=== PATIENT | male | born 1965 | race Hispanic/Latino ===

== ENCOUNTER 2017-08-01 01:32 | Emergency (ER) | payer SELFPAY ==
[2017-08-01 02:38] VITALS: PULSE 72; RESP 18; TEMP 98.3
[2017-08-01 02:39] VITALS: BMI 41.1
[2017-08-01] MEDS ORDERED: Oxycodone/Acetaminophen 5/325 mg Tab PO STA (03:22)
--- NOTE | 2017-08-01 03:29 | ED PDOC ---
Arrival/HPI - General Chief Complaint: Abnormal Skin Integrity Time Seen by Provider: 08/01/17 03:00 Historian: Patient - History of Present Illness Narrative History of Present Illness (Text): you were treated in the ED today for hx of shingles in the past and now having right upper abdomen/right lower chest with recurrent shingles/type uncomfortable rash and otherwise without any new foods/travel/sick contacts/new detergents/nausea/vomiting/headache/dizziness/difficulty breathing/chest pain/ abdomen pain/numbness/tingling/loss of limb function/pain with urination. You were otherwise breathing easily, pink moist lips, talking easily, good strength/ sensation, alert/oriented, walking easily, clear lungs, no abdomen tenderness, no oral lesions/swelling/change in voice/back of throat redness/white spots, noted positive right lower chest wall/upper abdomen area of shingles type rash without sign of bacterial infection at this time, no fever temp 98.3, stable heart rate 72, stable breathing rate 18, excellent oxygen level 96% room air, elevated blood pressure 168/99 which we recommend repeat in 2-3 days primary care office to determine further treatment, you stated you have taken motrin without improvement and asked for percocet for relief, acyclovir, prednisone, observation done in the ED with improvement, counselled to monitor symptoms and thus discharged home with family safe ride. 1. Recommend acyclovir, prednisone as directed for shingles control. 2. Recommend tylenol as directed for mild pain , motrin as directed for moderate pain and percocet as directed for breakthrough pain and don't work/drive/drink alcohol when using. 3. Recommend follow-up primary care 2-3 days to review symptoms. 4. If any worsening pain, fever, chills, nausea, vomiting, difficulty breathing, numbness, loss of limb function, pain with urination or any medical condition then return to the ED. 08/01/17 03:23 08/01/17 03:24 Time/Duration: Other (2 days) Symptom Onset: Gradual Symptom Course: Unchanged Quality: Aching Severity Level: 5 Activities at Onset: Rest Context: Sitting Past Medical History - Provider Review Nursing Documentation Reviewed: Yes - Travel History Have you recently traveled outside [place] w/in the past 3 mons?: No - Infectious Disease Hx of Infectious Diseases: None - Cardiac Hx Hypertension: Yes - Integumentary Other/Comment: [place] - Psychiatric Hx Substance Use: No - Surgical History Hx Orthopedic Surgery: Yes - Anesthesia Hx Anesthesia: Yes Hx Anesthesia Reactions: No Hx Malignant Hyperthermia: No Family/Social History - Physician Review Nursing Documentation Reviewed: Yes Family/Social History: No Known Family HX Smoking Status: Never Smoked Hx Alcohol Use: No Hx Substance Use: No Allergies/Home Meds Allergies/Adverse Reactions: Allergies No Known Allergies Allergy (Verified 08/01/17 02:38) Review of Systems - Review of Systems Constitutional: Normal Eyes: Normal ENT: Normal Respiratory: Normal Cardiovascular: Normal Gastrointestinal: Normal Genitourinary Male: Normal Musculoskeletal: Normal Skin: Rash Neurological: Normal Endocrine: Normal Hemo/Lymphatic: Normal Psychiatric: Normal Physical Exam Vital Signs Reviewed: Yes Vital Signs Temp Pulse Resp BP Pulse Ox 08/01/17 02:38 98.3 F 72 18 168/99 H 96 Temperature: Afebrile Blood Pressure: Hypertensive Pulse: Regular Respiratory Rate: Normal Appearance: Positive for: Well-Appearing, Non-Toxic, Comfortable Pain Distress: None Mental Status: Positive for: Alert and Oriented X 3 - Systems Exam Head: Present: Atraumatic, Normocephalic Pupils: Present: PERRL Extroacular Muscles: Present: EOMI Conjunctiva: Present: Normal Ears: Present: Normal Mouth: Present: Moist Mucous Membranes, Normal Tounge Pharnyx: Present: Normal Nose (External): Present: Atraumatic Nose (Internal): Present: Normal Inspection Neck: Present: Normal Range of Motion Respiratory/Chest: Present: Clear to Auscultation, Good Air Exchange Cardiovascular: No: Regular Rate and Rhythm, Murmurs, Normal S1, S2, Irregular Rhythm, Peripheal Pulses Present, Tachycardic, Bradycardic, Rub, Gallop, Muffled , Other Abdomen: No: Tenderness, Distention, Normal Bowel Sounds, Peritoneal Signs, Rebound, Guarding, McBurney's Point Tender, Rovsing's Sign Present, Hernias, Feeding Tubes, Ostomy Tubes, Mass/Organomegaly, Scars, Other Back: Present: Other (noted positive right lower chest wall/upper abdomen area which goes to the right upper back in a dermatome/nerve fashion of shingles type rash without sign of bacterial infection at this time) Upper Extremity: Present: Normal Inspection Lower Extremity: Present: Normal Inspection Neurological: Present: GCS=15, CN II-XII Intact, Speech Normal, Motor Func Grossly Intact Skin: Present: Warm, Rashes, Other (noted positive right lower chest wall/upper abdomen area which goes to the right upper back in a dermatome/nerve fashion of shingles type rash without sign of bacterial infection at this time) Psychiatric: Present: Alert, Oriented x 3, Normal Insight, Normal Concentration Medical Decision Making ED Course and Treatment: you were treated in the ED today for hx of shingles in the past and now having right upper abdomen/right lower chest with recurrent shingles/type uncomfortable rash and otherwise without any new foods/travel/sick contacts/new detergents/nausea/vomiting/headache/dizziness/difficulty breathing/chest pain/ abdomen pain/numbness/tingling/loss of limb function/pain with urination. You were otherwise breathing easily, pink moist lips, talking easily, good strength/ sensation, alert/oriented, walking easily, clear lungs, no abdomen tenderness, no oral lesions/swelling/change in voice/back of throat redness/white spots, noted positive right lower chest wall/upper abdomen area which goes to the right upper back in a dermatome/nerve fashion of shingles type rash without sign of bacterial infection at this time, no spinal tenderness, no fever temp 98.3, stable heart rate 72, stable breathing rate 18, excellent oxygen level 96% room air, elevated blood pressure 168/99 which we recommend repeat in 2-3 days primary care office to determine further treatment, you stated you have taken motrin without improvement and asked for percocet for relief, acyclovir, prednisone, observation done in the ED with improvement, counselled to monitor symptoms and thus discharged home with family safe ride. 1. Recommend acyclovir , prednisone as directed for shingles control. 2. Recommend tylenol as directed for mild pain, motrin as directed for moderate pain and percocet as directed for breakthrough pain and don't work/drive/drink alcohol when using. 3. Recommend follow-up primary care 2-3 days to review symptoms. 4. If any worsening pain, fever, chills, nausea, vomiting, difficulty breathing, numbness , loss of limb function, pain with urination or any medical condition then return to the ED. 08/01/17 03:30 08/01/17 03:31 Reassessment Condition: Re-examined, Improved - Medication Orders Current Medication Orders: Discontinued Medications Acyclovir (Zovirax) 800 mg PO STAT STA PRN Reason: Protocol Stop: 08/01/17 03:20 Oxycodone/Acetaminophen (Percocet 5/325 Mg Tab) 1 tab PO STAT STA Stop: 08/01/17 03:23 Prednisone (Prednisone Tab) 60 mg PO STAT ONE Stop: 08/01/17 03:23 Disposition/Present on Arrival - Present on Arrival Any Indicators Present on Arrival: No History of DVT/PE: No History of Uncontrolled Diabetes: No Urinary Catheter: No History of Decub. Ulcer: No History Surgical Site Infection Following: None - Disposition Have Diagnosis and Disposition been Completed?: Yes Diagnosis: Shingles Disposition: HOME/ ROUTINE Disposition Time: 03:31 Patient Plan: Discharge Patient Problems: Current Active Problems Problem Status Onset Shingles Acute Condition: IMPROVED Discharge Instructions (ExitCare): Shingles (DC), Shingles (ED) Additional Instructions: you were treated in the ED today for hx of shingles in the past and now having right upper abdomen/right lower chest with recurrent shingles/type uncomfortable rash and otherwise without any new foods/travel/sick contacts/new detergents/nausea/vomiting/headache/dizziness/difficulty breathing/chest pain/ abdomen pain/numbness/tingling/loss of limb function/pain with urination. You were otherwise breathing easily, pink moist lips, talking easily, good strength/ sensation, alert/oriented, walking easily, clear lungs, no abdomen tenderness, no oral lesions/swelling/change in voice/back of throat redness/white spots, noted positive right lower chest wall/upper abdomen area which goes to the right upper back in a dermatome/nerve fashion of shingles type rash without sign of bacterial infection at this time, no spinal tenderness, no fever temp 98.3, stable heart rate 72, stable breathing rate 18, excellent oxygen level 96% room air, elevated blood pressure 168/99 which we recommend repeat in 2-3 days primary care office to determine further treatment, you stated you have taken motrin without improvement and asked for percocet for relief, acyclovir, prednisone, observation done in the ED with improvement, counselled to monitor symptoms and thus discharged home with family safe ride. 1. Recommend acyclovir , prednisone as directed for shingles control. 2. Recommend tylenol as directed for mild pain, motrin as directed for moderate pain and percocet as directed for breakthrough pain and don't work/drive/drink alcohol when using. 3. Recommend follow-up primary care 2-3 days to review symptoms. 4. If any worsening pain, fever, chills, nausea, vomiting, difficulty breathing, numbness , loss of limb function, pain with urination or any medical condition then return to the ED. Prescriptions: Acyclovir [Zovirax] 800 mg PO 5XD 7 Days #35 tablet oxyCODONE/Acetaminophen [Percocet 5/325 mg Tab] 1 ea PO Q8 PRN 1 Days #6 tab PRN Reason: breakthrough pain predniSONE [Prednisone] 20 mg PO DAILY 5 Days #5 tab Forms: [employer] (Estonian)
[2017-08-01 04:53] VITALS: BP 156/88; O2SAT 100
== END 2017-08-01 03:35 | disposition home or self-care (01) ==
LOC: ED 01:32
DX: B02.9 Zoster without complications (principal)

== ENCOUNTER 2017-09-07 20:11 | Emergency (ER) | payer SELFPAY ==
[2017-09-07 20:12] VITALS: BMI 41.1
[2017-09-07 22:38] VITALS: BP 157/88; PULSE 80; RESP 16; TEMP 97.5; O2SAT 97
--- NOTE | 2017-09-08 02:50 | ED PDOC ---
Arrival/HPI - General Chief Complaint: Abnormal Skin Integrity Time Seen by Provider: 09/07/17 21:15 - History of Present Illness Narrative History of Present Illness (Text): 09/08/17 21:20 A 51 year old male, whose past medical history includes hypertension and Reynaud 's disease, presents to the emergency department complaining of painful chest rash. Patient reports rash began yesterday and it is painful to touch. He mentions having a history of shingles in the past. Patient denies any fever, or any other complaints at this time. No PMD Time/Duration: 24 hours Past Medical History - Provider Review Nursing Documentation Reviewed: Yes - Infectious Disease Hx of Infectious Diseases: None - Cardiac Hx Hypertension: Yes - Integumentary Other/Comment: Reynaud's - Psychiatric Hx Substance Use: No - Surgical History Hx Orthopedic Surgery: Yes - Anesthesia Hx Anesthesia: Yes Hx Anesthesia Reactions: No Hx Malignant Hyperthermia: No Family/Social History - Physician Review Nursing Documentation Reviewed: Yes Family/Social History: No Known Family HX Smoking Status: Never Smoked Hx Alcohol Use: No Hx Substance Use: No Allergies/Home Meds Allergies/Adverse Reactions: Allergies No Known Allergies Allergy (Verified 09/07/17 20:40) Review of Systems - Physician Review All systems were reviewed & negative as marked: Yes - Review of Systems Constitutional: absent: Fevers Respiratory: absent: SOB, Cough Cardiovascular: absent: Chest Pain Gastrointestinal: absent: Abdominal Pain, Diarrhea, Nausea, Vomiting Genitourinary Male: absent: Urinary Output Changes Musculoskeletal: absent: Back Pain, Neck Pain Skin: Rash (painful rash located on chest, painful to touch.) Neurological: absent: Headache, Dizziness Physical Exam Vital Signs Reviewed: Yes Vital Signs Temp Pulse Resp BP Pulse Ox 09/07/17 22:15 97.5 F L 80 16 157/88 H 97 09/07/17 22:09 97.8 F 73 17 151/95 H 100 09/07/17 20:50 97.5 F L 80 18 157/88 H 97 Temperature: Afebrile Blood Pressure: Hypertensive Pulse: Regular Respiratory Rate: Normal Appearance: Positive for: Well-Appearing, Non-Toxic, Comfortable Pain Distress: None Mental Status: Positive for: Alert and Oriented X 3 - Systems Exam Head: Present: Atraumatic, Normocephalic Mouth: Present: Moist Mucous Membranes Neck: Present: Normal Range of Motion Respiratory/Chest: Present: Clear to Auscultation, Good Air Exchange. No: Respiratory Distress, Accessory Muscle Use Cardiovascular: Present: Regular Rate and Rhythm, Normal S1, S2. No: Murmurs Abdomen: No: Tenderness, Distention, Peritoneal Signs Back: Present: Normal Inspection Upper Extremity: Present: Normal Inspection. No: Cyanosis, Edema Lower Extremity: Present: Normal Inspection. No: Edema Neurological: Present: GCS=15, CN II-XII Intact, Speech Normal Skin: Present: Rashes (dermatomal rash located on chest along anterior TA distribution, tender to touch.) Psychiatric: Present: Alert, Oriented x 3, Normal Insight, Normal Concentration Medical Decision Making ED Course and Treatment: 09/07/17 21:24 Impression: 51 year old male with painful rash to chest. Plan: -- Zovirax -- preniSONE Tab -- Reassess and disposition Progress Notes: - Medication Orders Current Medication Orders: Discontinued Medications Acyclovir (Zovirax) 800 mg PO STAT STA PRN Reason: Protocol Stop: 09/07/17 21:25 Last Admin: 09/07/17 22:05 Dose: 800 mg Prednisone (Prednisone Tab) 60 mg PO STAT ONE Stop: 09/07/17 21:16 Last Admin: 09/07/17 22:05 Dose: 60 mg - Scribe Statement The provider has reviewed the documentation as recorded by the Anamaria Patrick Provider Scribe Attestation: All medical record entries made by the Scribe were at my direction and personally dictated by me. I have reviewed the chart and agree that the record accurately reflects my personal performance of the history, physical exam, medical decision making, and the department course for this patient. I have also personally directed, reviewed, and agree with the discharge instructions and disposition. Disposition/Present on Arrival - Present on Arrival Any Indicators Present on Arrival: No History of DVT/PE: No History of Uncontrolled Diabetes: No Urinary Catheter: No History of Decub. Ulcer: No History Surgical Site Infection Following: None - Disposition Have Diagnosis and Disposition been Completed?: Yes Diagnosis: Shingles Disposition: HOME/ ROUTINE Disposition Time: 20:50 Condition: GOOD Discharge Instructions (ExitCare): Shingles (ED) Additional Instructions: DECLAN SIMONS, thank you for letting us take care of you today. Your provider was Francisco Perez DO and you were treated for CHEST RASH. The emergency medical care you received today was directed at your acute symptoms. If you were prescribed any medication, please fill it and take as directed. It may take several days for your symptoms to resolve. Return to the Emergency Department if your symptoms worsen, do not improve, or if you have any other problems. Please contact your doctor or call one of the physicians/clinics you have been referred to that are listed on the Patient Visit Information form that is included in your discharge packet. Bring any paperwork you were given at discharge with you along with any medications you are taking to your follow up visit. Our treatment cannot replace ongoing medical care by a primary care provider outside of the emergency department. Thank you for allowing the [facility] team to be part of your care today. Follow up with your primary care doctor in 2-3 days for re-evaluation and further management. Prescriptions: Acyclovir [Zovirax] 800 mg PO 5XD 7 Days tab oxyCODONE [oxyCODONE Immediate Release Tab] 5 mg PO Q6 PRN #15 tab PRN Reason: Pain, Severe (8-10) predniSONE [Prednisone] 40 mg PO DAILY #10 tab Referrals: [facility] Maddy Remadeline, [Family Provider] - Follow up with primary Forms: [employer] (Divehi)
== END 2017-09-07 22:20 | disposition home or self-care (01) ==
LOC: ED 20:11
DX: B02.9 Zoster without complications (principal); I10 Essential (primary) hypertension

== ENCOUNTER 2017-10-29 04:03 | Emergency (ER) | payer SELFPAY ==
[2017-10-29 04:03] VITALS: BMI 41.1
[2017-10-29 04:16] VITALS: BP 156/100; PULSE 88; RESP 18; TEMP 98.4
--- NOTE | 2017-10-29 04:35 | ED PDOC ---
Arrival/HPI - General Historian: Patient - History of Present Illness Time/Duration: < week Symptom Onset: Gradual Symptom Course: Worsening Quality: Stabbing, Burning Severity Level: Moderate - General Chief Complaint: Abnormal Skin Integrity Time Seen by Provider: 10/29/17 04:18 - History of Present Illness Narrative History of Present Illness (Text): 10/29/17 04:31 51 year old male, past medical history of hypertension, Raynaud's, and shingles , presents to the emergency department with new onset dermatomal rash on right side of chest. Patient states he felt stabbing pain with tingling over the right chest below the breast 3 days ago. The following day he noticed the rash develop with subsequent vesicles and discharge. He states the pain is unbearable. He has a history of shingles treated in the past. Patient used lidoderm, aveeno bath, motrin, and a percocet (given to him by his mother) for pain relief. He is unable to sit because that aggravates his symptoms. Denies fever, chills, nausea, vomiting, headache, dizziness, palpitations, shortness of breath, cough, abdominal pain, or urinary symptoms. No PMD (Yehya,Mayito) Past Medical History - Provider Review Nursing Documentation Reviewed: Yes - Infectious Disease Hx of Infectious Diseases: None - Cardiac Hx Cardiac Disorders: Yes Hx Hypertension: Yes - Integumentary Other/Comment: [place] - Psychiatric Hx Substance Use: No - Surgical History Hx Orthopedic Surgery: Yes - Anesthesia Hx Anesthesia: Yes Hx Anesthesia Reactions: No Hx Malignant Hyperthermia: No Family/Social History - Physician Review Nursing Documentation Reviewed: Yes Family/Social History: Neoplasm/Cancer Smoking Status: Never Smoked Hx Alcohol Use: No Hx Substance Use: No Allergies/Home Meds Allergies/Adverse Reactions: Allergies No Known Allergies Allergy (Verified 09/07/17 20:40) Home Medications: Home Meds Medication Instructions Recorded Confirmed Allopurinol [Zyloprim] 100 mg PO BID 10/29/17 10/29/17 Ibuprofen [Motrin Tab] 800 mg PO TID PRN 10/29/17 10/29/17 Lisinopril [Zestril] 40 mg PO DAILY 10/29/17 10/29/17 Review of Systems - Physician Review All systems were reviewed & negative as marked: Yes - Review of Systems Constitutional: absent: Fevers Eyes: absent: Vision Changes ENT: absent: Hearing Changes Respiratory: absent: SOB, Cough Cardiovascular: absent: Chest Pain, Palpitations Gastrointestinal: absent: Abdominal Pain, Nausea, Vomiting Genitourinary Male: absent: Dysuria, Hematuria Skin: Rash, Skin Lesions Neurological: absent: Headache, Dizziness Physical Exam Vital Signs Reviewed: Yes Temperature: Afebrile Blood Pressure: Hypertensive Pulse: Regular Respiratory Rate: Normal Appearance: Positive for: Well-Appearing, Non-Toxic, Uncomfortable Pain Distress: Moderate Mental Status: Positive for: Alert and Oriented X 3 - Systems Exam Head: Present: Atraumatic, Normocephalic Pupils: Present: PERRL Extroacular Muscles: Present: EOMI Mouth: Present: Moist Mucous Membranes Respiratory/Chest: Present: Clear to Auscultation, Good Air Exchange. No: Respiratory Distress, Accessory Muscle Use Cardiovascular: Present: Regular Rate and Rhythm, Normal S1, S2. No: Murmurs Abdomen: No: Tenderness, Distention, Peritoneal Signs Skin: Present: Rashes, Other (dermatomal vesicular rash from the right anterior chest wall around to the back with erythema) Psychiatric: Present: Alert, Oriented x 3 Vital Signs Temp Pulse Resp BP Pulse Ox 10/29/17 04:13 98.4 F 88 18 156/100 H 100 Medical Decision Making ED Course and Treatment: Impression: Pt seen and evaluated with medical lab technician. Aware and agree with HPI, clinical findings, plan, and management. Pt, whose past medical history includes hypertension, Raynaud's, and shingles, presented for dermatomal rash to right chest with associated pain to the area. Plan: -- Acyclovir -- Motrin -- Reassess and disposition (Monroe Lara) 10/29/17 04:38 51M, PMH of shingles, Raynaud's, HTN, presents to ED with shingles. Acyclovir 800mg Ibuprofen 600mg Patient to follow up with primary medical doctor within 1 week. Patient will be discharged with Acyclovir 800mg 5xD for 7 days. Ibuprofen for pain relief. Do not take on an empty stomach. Advised to limit use of mother's narcotics. Warm compresses for pain relief. If symptoms worsen, please return to the emergency room. Patient verbalized understanding and agreement of treatment plan. Case reviewed and discussed with attending provider. (Mayito Hector) - Medication Orders Current Medication Orders: Discontinued Medications Acyclovir (Zovirax) 800 mg PO ONCE ONE PRN Reason: Protocol Stop: 10/29/17 04:31 Last Admin: 10/29/17 04:48 Dose: 800 mg Ibuprofen (Motrin Tab) 600 mg PO STAT STA Stop: 10/29/17 04:30 Last Admin: 10/29/17 04:48 Dose: Not Given Non-Admin Reason: Patient Refused Oxycodone/Acetaminophen (Percocet 5/325 Mg Tab) 1 tab PO STAT STA Stop: 10/29/17 05:06 Disposition/Present on Arrival - Present on Arrival Any Indicators Present on Arrival: No History of DVT/PE: No History of Uncontrolled Diabetes: No Urinary Catheter: No History of Decub. Ulcer: No History Surgical Site Infection Following: None - Disposition Have Diagnosis and Disposition been Completed?: Yes Disposition Time: 04:41 Patient Plan: Discharge - Disposition Diagnosis: Shingles outbreak Disposition: HOME/ ROUTINE Patient Problems: Current Active Problems Problem Status Onset Shingles outbreak Acute Condition: STABLE Discharge Instructions (ExitCare): Shingles (DC) Additional Instructions: Patient to follow up with primary medical doctor within 1 week. Patient will be discharged with Acyclovir 800mg 5xD for 7 days. Ibuprofen for pain relief. Do not take on an empty stomach. Percocet provided for pain relief. Please limit use of narcotics. Warm compresses for pain relief. If symptoms worsen, please return to the emergency room. Prescriptions: Acyclovir [Zovirax] 800 mg PO 5XD 7 Days #35 tab oxyCODONE/Acetaminophen [Percocet 5/325 mg Tab] 1 ea PO QID #10 tab Referrals: FAMILY PROVIDER,NO [Primary Care Provider] - Follow up with primary Forms: [employer] (Japanese)
[2017-10-29] MEDS ORDERED: Oxycodone/Acetaminophen 5/325 mg Tab PO STA (05:05)
[2017-10-29 05:23] VITALS: O2SAT 99
== END 2017-10-29 05:22 | disposition home or self-care (01) ==
LOC: ED 04:03
DX: B02.9 Zoster without complications (principal)

== ENCOUNTER 2017-12-25 21:41 | Emergency (ER) | payer SELFPAY ==
[2017-12-25 22:07] VITALS: BMI 38.9
[2017-12-25 22:18] VITALS: TEMP 98.1
[2017-12-25] MEDS ORDERED: Oxycodone/Acetaminophen 5/325 mg Tab PO STA (23:07)
--- NOTE | 2017-12-25 23:11 | ED PDOC ---
Arrival/HPI - General Historian: Patient - History of Present Illness Narrative History of Present Illness (Text): Kenny Lion is a 52 year old male who presents to the Emergency department complaining of rash since yesterday, along the right side of his chest and right upper back. Patient states he has a history of shingles, notes he always has shingles outbreak on the his right side. Patient states he has been dealing with shingles outbreaks frequently for many years. Patient complaining of moderate to severe pain to right chest. Patient denies any cough, shortness of breath, dizziness, weakness, or any other complaints. Symptom Onset: Gradual Symptom Course: Unchanged Activities at Onset: Light Context: Home <Zeinab Blair - Last Filed: 12/25/17 23:42> <Herbie Meier - Last Filed: 12/25/17 23:58> - General Chief Complaint: Abnormal Skin Integrity Time Seen by Provider: 12/25/17 21:54 Past Medical History - Provider Review Nursing Documentation Reviewed: Yes - Travel History Have you recently traveled outside [place] w/in the past 3 mons?: No - Infectious Disease Hx of Infectious Diseases: None - Cardiac Hx Cardiac Disorders: Yes Hx Hypertension: Yes - Integumentary Other/Comment: Shawn's - Psychiatric Hx Substance Use: No - Surgical History Hx Orthopedic Surgery: Yes - Anesthesia Hx Anesthesia: Yes Hx Anesthesia Reactions: No Hx Malignant Hyperthermia: No <Zeinab Blair - Last Filed: 12/25/17 23:42> Family/Social History - Physician Review Nursing Documentation Reviewed: Yes Family/Social History: Unknown Family HX Smoking Status: Never Smoked Hx Alcohol Use: No Hx Substance Use: No <Zeinab Blair - Last Filed: 12/25/17 23:42> Allergies/Home Meds <Zeinab Blair - Last Filed: 12/25/17 23:42> <Herbie Meier - Last Filed: 12/25/17 23:58> Allergies/Adverse Reactions: Allergies No Known Allergies Allergy (Verified 09/07/17 20:40) Home Medications: Home Meds Medication Instructions Recorded Confirmed Allopurinol [Zyloprim] 100 mg PO BID 10/29/17 10/29/17 Ibuprofen [Motrin Tab] 800 mg PO TID PRN 10/29/17 10/29/17 Lisinopril [Zestril] 40 mg PO DAILY 10/29/17 10/29/17 Review of Systems - Physician Review All systems were reviewed & negative as marked: Yes - Review of Systems Constitutional: Normal. absent: Fevers ENT: Normal Respiratory: Normal. absent: SOB, Cough Cardiovascular: absent: Chest Pain, Palpitations Gastrointestinal: Normal. absent: Abdominal Pain, Diarrhea, Nausea, Vomiting Genitourinary Male: Normal. absent: Frequency, Hematuria, Urinary Output Changes Musculoskeletal: absent: Arthralgias, Back Pain, Neck Pain Skin: Rash (+painful shingles rash to right chest/upper back). absent: Pruritis Neurological: Normal. absent: Headache, Dizziness Psychiatric: Normal. absent: Anxiety, Depression <Zeinab Blair - Last Filed: 12/25/17 23:42> Physical Exam Vital Signs Reviewed: Yes Vital Signs Temp Pulse Resp BP Pulse Ox 12/25/17 22:15 98.1 F 76 18 124/81 96 Temperature: Afebrile Blood Pressure: Normal Pulse: Regular Respiratory Rate: Normal Appearance: Positive for: Well-Appearing, Non-Toxic, Comfortable Pain Distress: None Mental Status: Positive for: Alert and Oriented X 3 - Systems Exam Head: Present: Atraumatic, Normocephalic Conjunctiva: Present: Normal Mouth: Present: Moist Mucous Membranes Neck: Present: Normal Range of Motion Respiratory/Chest: Present: Clear to Auscultation, Good Air Exchange. No: Re spiratory Distress, Accessory Muscle Use Cardiovascular: Present: Regular Rate and Rhythm, Normal S1, S2. No: Murmurs Abdomen: No: Tenderness, Distention, Peritoneal Signs Back: Present: Normal Inspection Upper Extremity: Present: Normal Inspection. No: Cyanosis, Edema Lower Extremity: Present: Normal Inspection. No: Edema Neurological: Present: GCS=15, Speech Normal Skin: Present: Warm, Dry, Rashes (Multiple erythematous vesicles noted to T5 dermatome, just inferior to breast and to back on right side along right posterior scapula with positive tenderness) Psychiatric: Present: Alert, Oriented x 3 <Zeinab Blair Last Filed: 12/25/17 23:42> Vital Signs Temp Pulse Resp BP Pulse Ox 12/25/17 22:15 98.1 F 76 18 124/81 96 <Herbie Meier Last Filed: 12/25/17 23:58> Medical Decision Making ED Course and Treatment: Impression: 52 year old male complaining of shingles rash to right chest and right upper back. Plan: -- Valtrex -- Toradol -- Percocet -- Reassess and disposition Prior Visits: Notes and results from previous visits were reviewed. Progress Notes: 12/25/17 23:34 pt is non toxic well appearing; no distress. stable vitals. pt in [facility] aware with rx for percocet every 2 months for the past 8 months. pt was advised to take motrin and valtrex and use lidoderm patches Patient verbalizes understanding of discharge instructions and need for immediate followup. all aspects of this case were discussed the attending of record. impression; shingles Motrin every 6 hours as needed for pain Increase fluids Valtrex 1 tablet 3 times daily 7 days Follow-up with the primary care physician within the next 2 days Return immediately if symptoms worsen persist or if new concerning symptoms develop <Zeinab Blair - Last Filed: 12/25/17 23:42> - Medication Orders Current Medication Orders: Discontinued Medications Ketorolac Tromethamine (Toradol) 60 mg IM STAT STA Stop: 12/25/17 23:08 Last Admin: 12/25/17 23:36 Dose: Not Given Non-Admin Reason: Patient Refused Oxycodone/Acetaminophen (Percocet 5/325 Mg Tab) 1 tab PO STAT STA Stop: 12/25/17 23:08 Last Admin: 12/25/17 23:36 Dose: 1 tab [facility] Pain Assessment Document 12/25/17 23:36 RD (Rec: 12/25/17 23:36 RD [id number]) Pain Reassessment Is this a pain reassessment? No Sleep Is patient sleeping during reassessment? No Presence of Pain Presence of Pain Yes Valacyclovir HCl (Valtrex) 1 gm PO STAT STA; Protocol Stop: 12/25/17 23:08 Last Admin: 12/25/17 23:38 Dose: 1 gm <Herbie Meier - Last Filed: 12/25/17 23:58> - Scribe Statement The provider has reviewed the documentation as recorded by the Anamaria Huitron Provider Scribe Attestation: All medical record entries made by the Scribe were at my direction and personally dictated by me. I have reviewed the chart and agree that the record accurately reflects my personal performance of the history, physical exam, medical decision making, and the department course for this patient. I have also personally directed, reviewed, and agree with the discharge instructions and disposition. <Zeinab Blair - Last Filed: 12/25/17 23:42> - PA / [employer] / Resident Statement MD/DO has reviewed & agrees with the documentation as recorded. <ReneaHerbie - Last Filed: 12/25/17 23:58> Disposition/Present on Arrival - Present on Arrival Any Indicators Present on Arrival: No History of DVT/PE: No History of Uncontrolled Diabetes: No Urinary Catheter: No History of Decub. Ulcer: No History Surgical Site Infection Following: None - Disposition Have Diagnosis and Disposition been Completed?: Yes Disposition Time: 23:09 Patient Plan: Discharge <Zeinab Blair - Last Filed: 12/25/17 23:42> <ReneaHerbie - Last Filed: 12/25/17 23:58> - Disposition Diagnosis: Shingles Disposition: HOME/ ROUTINE Patient Problems: Current Active Problems Problem Status Onset Shingles Acute Condition: GOOD Discharge Instructions (ExitCare): Shingles (ED) Additional Instructions: Motrin every 6 hours as needed for pain Increase fluids Valtrex 1 tablet 3 times daily 7 days Follow-up with the primary care physician within the next 2 days Return immediately if symptoms worsen persist or if new concerning symptoms develop Prescriptions: oxyCODONE/Acetaminophen [Percocet 5/325 mg Tab] 1 tab PO Q6H PRN #6 tab PRN Reason: moderate to severe pain valACYclovir [Valtrex] 1 gm PO TID #21 tab Referrals: Dana Ordonez MD [Staff Provider] - Follow up with primary Maxi Solis MD [Staff Provider] - Follow up with primary Falguni Mcintyre MD [Medical Doctor] - Follow up with primary [facility] [Outside] - Follow up with primary Forms: [facility] (Togolese), WORK NOTE
[2017-12-26 00:27] VITALS: BP 122/75; PULSE 70; RESP 17; O2SAT 98
== END 2017-12-25 23:45 | disposition home or self-care (01) ==
LOC: ED 21:41
DX: B02.9 Zoster without complications (principal)

== ENCOUNTER 2018-02-14 10:38 | Emergency (ER) | payer SELFPAY ==
[2018-02-14 10:38] VITALS: BMI 38.9
[2018-02-14 11:02] VITALS: RESP 18; O2SAT 98
--- NOTE | 2018-02-14 11:53 | ED PDOC ---
Arrival/HPI - General Chief Complaint: Abnormal Skin Integrity Time Seen by Provider: 02/14/18 11:10 Historian: Patient - History of Present Illness Narrative History of Present Illness (Text): 02/14/18 12:20 52 y/o male with PMH of HTN and recurrent shingles outbreaks presents to ED c/o red vesicular rash since yesterday, along the right side of his anterior chest. Patient states he has a history of shingles, notes he always has shingles outbreak on the his right side. Patient has been dealing with shingles outbreaks frequently for many years, following with multiple specialists for the issue including dermatology, infectious disease, and neurology. Patient is from out of town and has appointment with his primary doctor on 02/19/17. Currently c/o burning pain over the rash, took 2 percocet this morning for pain. Patient denies any fevers, chills, N/V, cough, shortness of breath, dizziness, weakness, or any other complaints. Past Medical History - Provider Review Nursing Documentation Reviewed: Yes - Infectious Disease Hx of Infectious Diseases: None - Cardiac Hx Cardiac Disorders: Yes Hx Hypertension: Yes - Integumentary Other/Comment: [place] - Psychiatric Hx Substance Use: No - Surgical History Hx Orthopedic Surgery: Yes - Anesthesia Hx Anesthesia: Yes Hx Anesthesia Reactions: No Hx Malignant Hyperthermia: No Family/Social History - Physician Review Nursing Documentation Reviewed: Yes Family/Social History: No Known Family HX Smoking Status: Never Smoked Hx Alcohol Use: Yes Frequency of alcohol use: Socially Hx Substance Use: No Allergies/Home Meds Allergies/Adverse Reactions: Allergies No Known Allergies Allergy (Verified 02/14/18 11:02) Home Medications: Home Meds Medication Instructions Recorded Confirmed Allopurinol [Zyloprim] 100 mg PO BID 10/29/17 10/29/17 Ibuprofen [Motrin Tab] 800 mg PO TID PRN 10/29/17 10/29/17 Lisinopril [Zestril] 40 mg PO DAILY 10/29/17 10/29/17 Review of Systems - Physician Review All systems were reviewed & negative as marked: Yes - Review of Systems Constitutional: Normal. absent: Fevers Eyes: Normal. absent: Vision Changes ENT: Normal. absent: Sinus Congestion Respiratory: Normal. absent: SOB Cardiovascular: Chest Pain (over rash). absent: Palpitations Gastrointestinal: Normal. absent: Abdominal Pain, Stool Changes, Nausea, Vomiting, Appetite Changes Genitourinary Male: Normal. absent: Dysuria, Frequency, Urinary Output Changes Musculoskeletal: Normal. absent: Arthralgias, Back Pain Skin: Rash Neurological: Normal. absent: Headache, Dizziness, Focal Weakness, Gait Changes, Disequilibrium Endocrine: Normal Hemo/Lymphatic: Normal Psychiatric: Normal Physical Exam Vital Signs Reviewed: Yes Vital Signs Temp Pulse Resp BP Pulse Ox 02/14/18 11:00 98.1 F 69 18 168/97 H 98 Temperature: Afebrile Blood Pressure: Hypertensive Pulse: Regular Respiratory Rate: Normal Appearance: Positive for: Well-Appearing, Non-Toxic, Comfortable Pain Distress: None Mental Status: Positive for: Alert and Oriented X 3 - Systems Exam Head: Present: Atraumatic, Normocephalic Pupils: Present: PERRL Extroacular Muscles: Present: EOMI Conjunctiva: Present: Normal Mouth: Present: Moist Mucous Membranes Neck: Present: Normal Range of Motion. No: Meningeal Signs Respiratory/Chest: Present: Clear to Auscultation, Good Air Exchange, Tender to Palpation (over rash). No: Respiratory Distress, Accessory Muscle Use Cardiovascular: Present: Regular Rate and Rhythm, Normal S1, S2. No: Murmurs Abdomen: No: Tenderness, Distention, Peritoneal Signs Back: Present: Normal Inspection. No: CVA Tenderness, Paraspinal Tenderness Upper Extremity: Present: Normal Inspection, Normal ROM, NORMAL PULSES, Neurovascularly Intact, Capillary Refill < 2s. No: Cyanosis, Edema Lower Extremity: Present: Normal Inspection, Normal ROM Neurological: Present: GCS=15, CN II-XII Intact, Speech Normal, Motor Func Grossly Intact, Normal Sensory Function, Gait Normal Skin: Present: Warm, Dry, Normal Color, Other (erythematous, flat, painful, vesicular rash on right anterior chest that does not cross the midline; suspicious for herpes zoster) Psychiatric: Present: Alert, Oriented x 3, Normal Insight, Normal Concentration, Normal Affect, Normal Mood Medical Decision Making ED Course and Treatment: 02/14/18 12:31 Initial Plan: * Valtrex * Prednisone Plan of care discussed with patient. Strict instructions given regarding prescription use, importance of followup, and signs/symptoms to return to ER including fevers, chills, worsening pain, or any other new/worsening symptoms. Pt verbalized understanding of discussion. Patient is A&Ox3, ambluating with steady gait, with vital signs stable for discharge. - Medication Orders Current Medication Orders: Discontinued Medications Valacyclovir HCl (Valtrex) 1 gm PO STAT STA; Protocol Stop: 02/14/18 11:51 Disposition/Present on Arrival - Present on Arrival Any Indicators Present on Arrival: No History of DVT/PE: No History of Uncontrolled Diabetes: No Urinary Catheter: No History of Decub. Ulcer: No History Surgical Site Infection Following: None - Disposition Have Diagnosis and Disposition been Completed?: Yes Diagnosis: Shingles Disposition: HOME/ ROUTINE Disposition Time: 12:20 Condition: STABLE Discharge Instructions (ExitCare): [place] (ED) Additional Instructions: Take prednisone 2 tabs daily for 7 days Take valtrex every 8 hours for 7 days Take percocet as needed for severe pain Followup with primary doctor within 2 days Return to ER for any new/worsening symptoms Prescriptions: oxyCODONE/Acetaminophen [Percocet 5/325 mg Tab] 1 tab PO Q6H PRN #12 tab PRN Reason: Pain, Severe (8-10) predniSONE [predniSONE Tab] 40 mg PO DAILY #14 tab Valacyclovir HCl [Valtrex] 1 gm PO Q8H #20 tablet Referrals: [facility] [place] [facility] [Outside] - Follow up with primary Falguni Mcintyre MD [Medical Doctor] - Follow up with primary Forms: [facility] (British), WORK NOTE
[2018-02-14 12:25] VITALS: BP 159/88; PULSE 79; TEMP 98
== END 2018-02-14 12:30 | disposition home or self-care (01) ==
LOC: ED 10:38
DX: B02.9 Zoster without complications (principal); I10 Essential (primary) hypertension